=== PATIENT | male | born 1940 | race Caucasian/White ===

== ENCOUNTER 2017-03-10 21:19 | Emergency (ER) | payer MEDICARE, OTHER ==
--- NOTE | 2017-03-10 21:31 | Emergency Department Record ---
History of Present Illness - General Chief Complaint: Laceration(s) Stated Complaint: LACERATION ON HEAD Time Seen by Provider: 03/10/17 21:26 Source: Patient Mode of Arrival: Ambulatory Limitations: No limitations - History of Present Illness Initial Commments: 76 yo male presents to ED for evaluation of injury to the right posterior scalp this evening. Patient reports that while out hunting tonight, he sat down on a log and fell backwards resulting in the laceration to the scalp. Patient denies anticoagulation use, denies headache or neck pain symptoms. Patient denies numbness, tingling, or extremity weakness on examination. Patient reports that his daughter cut his hair around the laceration and applied " liquid skin" to the wound prior to arrival. Onset/Timin -: Hour(s) Place: Outdoors Context: Accidental Associated Symptoms: None Treatments Prior to Arrival: Bandage - Sterrett Coma Scale Eye Response: (4) Open spontaneously Motor Response: (6) Obeys commands Verbal Response: (5) Oriented Rosalinda Total: 15 - Related Data Home Medications Medication Instructions Recorded Confirmed Last Taken Aspirin 81 mg PO DAILY 03/10/17 03/10/17 Unknown Fluoxetine HCl [Prozac] 20 mg PO DAILY 03/10/17 03/10/17 Unknown Losartan Potassium [Cozaar] 100 mg PO DAILY 03/10/17 03/10/17 Unknown Simvastatin [Zocor] 20 mg PO QPM 03/10/17 03/10/17 Unknown Allergies Allergy/AdvReac Type Severity Reaction Status Date / Time No Known Drug Allergies Allergy Verified 03/10/17 21:22 Review of Systems Constitutional: Denies: Chills, Fever, Malaise, Night sweats Eyes: Denies: Eye discharge, Eye pain ENT: Denies: Congestion, Ear pain, Epistaxis Respiratory: Denies: Cough, Dyspnea Cardiovascular: Denies: Chest pain, Dyspnea on exertion Endocrine: Denies: Fatigue Gastrointestinal: Denies: Abdominal pain, Nausea, Vomiting Musculoskeletal: Denies: Arthralgia, Back pain, Gout, Joint swelling Skin: Reports: Other (scal laceration). Denies: Bruising, Change in color Neurological: Denies: Abnormal gait, Confusion, Headache, Seizure Psychiatric: Denies: Anxiety Hematological/Lymphatic: Denies: Anemia, Blood Clots Physical Exam - General General Appearance: Alert, Oriented x3, Cooperative, Mild distress Limitations: No limitations - Head Head exam: Normocephalic, Other (2.5 cm laceration to the posterior right scalp , previously repaired prior to arrival, no active bleeding is present on examination.) Head exam detail: Abrasion, General tenderness, Laceration. negative: Contusion , Kilgore's sign, Hematoma - Eye Eye exam: Normal appearance. negative: Conjunctival injection, Periorbital swelling, Periorbital tenderness, Scleral icterus - ENT Ear exam: negative: Auricular hematoma, Auricular trauma Nasal Exam: negative: Active bleeding, Discharge, Dried blood, Foreign body Mouth exam: negative: Drooling, Laceration, Muffled voice, Tongue elevation - Neck Neck exam: Normal inspection. negative: Meningismus, Tenderness - Respiratory Respiratory exam: Normal lung sounds bilaterally. negative: Rales, Respiratory distress, Rhonchi, Stridor - Cardiovascular Cardiovascular Exam: Regular rate, Normal rhythm, Normal heart sounds - GI/Abdominal GI/Abdominal exam: Soft. negative: Rebound, Rigid, Tenderness - Rectal Rectal exam: Deferred - exam: Deferred - Extremities Extremities exam: Normal inspection. negative: Calf tenderness, Pedal edema, Tenderness - Back Back exam: Denies: CVA tenderness (R), CVA tenderness (L) - Neurological Neurological exam: Alert, Normal gait, Oriented X3 - Psychiatric Psychiatric exam: Normal affect, Normal mood - Skin Skin exam: Normal color. negative: Abrasion Type of lesion: negative: abrasion Course - Reevaluation(s) Reevaluation #1: 03/10/17 21:45 CT Brain: No acute process Patient was updated on his CT imaging results, dressing applied over the previously repaired laceration, and the patient appears stable for discharge at this time. Disposition Disposition: Discharge Clinical Impression: Scalp laceration Qualifiers: Encounter type: initial encounter Qualified Code(s): S01.01XA - Laceration without foreign body of scalp, initial encounter Disposition: Home, Self-Care Condition: (2) Stable Instructions: Laceration (ED) Additional Instructions: Return to ED if your symptoms worsen or if you have any concerns. Follow-up with your family doctor in 3-5 days as directed. Forms: Patient Portal Access Time of Disposition: 21:47 Quality - Quality Measures Quality Measures: N/A - Blood Pressure Screening Does Patient Have Any of the Following: Active Dx of HTN Blood Pressure Classification: Hypertensive Reading Systolic Measurement: 167 Diastolic Measurement: 68 Screening for High Blood Pressure: Patient Exclusion, Hx of HTN [[id number]]
--- NOTE | 2017-03-11 11:24 | CT SCAN REPORT ---
EXAM: CT SCAN HEAD WO CONTRAST HISTORY: FELL IN THE REED, FELL BACKWARDS CUTTING HEAD. TECHNIQUE: Axial CT scan of the head performed without IV contrast. COMPARISON: None. ENCOUNTER: Initial. FINDINGS: No definite acute intracranial hemorrhage identified. No focal mass effect or midline shift apparent. Moderate generalized atrophy with some chronic -appearing deep white matter changes, nonspecific but likely representing some chronic small vessel deep white matter ischemic disease. No definite acute infarct or intracranial mass lesion is seen. Some membrane thickening inferiorly in the right frontal sinus, which may represent a small cyst or polyp in this location. Elsewhere, the paranasal sinuses appear essentially clear. No depressed calvarial fracture is evident. There is probably a small amount of soft tissue swelling on the scalp of the high right parietal region. IMPRESSION: 1. GENERALIZED ATROPHY WITH SOME CHRONIC-APPEARING DEEP WHITE MATTER CHANGES. 2. NO DEFINITE ACUTE INTRACRANIAL HEMORRHAGE OR FOCAL MASS EFFECT EVIDENT. 3. THERE IS PROBABLY A SMALL CYST OR POLYP MEDIALLY IN THE INFERIOR ASPECT OF THE RIGHT FRONTAL SINUS. JOB NUMBER: [id number] [facility]
== END 2017-03-10 22:38 | disposition home or self-care (01) ==
LOC: ER 21:19
DX: S01.01XA Laceration without foreign body of scalp, initial encounter (principal); S09.90XA Unspecified injury of head, initial encounter; W17.89XA Other fall from one level to another, initial encounter; Y92.828 Other wilderness area as the place of occurrence of the external cause
CPT/HCPCS: 70450; 99283